=== PATIENT | male | born 1965 | race Caucasian/White ===

== ENCOUNTER 2018-08-21 07:23 | Outpatient (CLI) ==
--- NOTE | 2018-08-21 10:09 | US ---
Exam: Right upper quadrant abdominal ultrasound HISTORY: Elevated liver enzymes. Procedures: Transverse and longitudinal real time yarbrough scale echograms and color Doppler images of t he right upper abdominal quadrant were obtained. FINDINGS: The pancreatic head and body appear within normal limits, the tail is obscured by bowel ga s. The liver is incompletely visualized and demonstrates normal echo texture with no intrahepatic ma ss or ductal dilatation. Forward flow is noted in the portal vein. The gallbladder demonstrates no e chogenic gallstones, gallbladder wall thickening or pericholecystic fluid. The common bile duct is n ot dilated. The right kidney is 11 cm in length, without hydronephrosis. There is no free fluid in the right upper abdominal quadrant. IMPRESSION: No evidence of cholelithiasis or biliary ductal dilatation. No acute process in the rig ht upper abdominal quadrant.
== END 2018-08-21 07:24 | disposition home or self-care (01) ==
LOC: RAD 07:23
PROVIDERS: ATTEND Family Medicine
DX: R74.8 Abnormal levels of other serum enzymes (principal)